=== PATIENT | male | born 2000 | race Caucasian/White ===

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

== ENCOUNTER 2023-12-22 21:22 | Emergency (ER) | payer MEDICAID, SELFPAY ==
[2023-12-22 21:28] VITALS: BP 138/78; PULSE 119; RESP 16; TEMP 37.3; O2SAT 100; BMI 22.4
[2023-12-22] MEDS: ondansetron 4 MG Tablet PO (22:21)
[2023-12-22] MEDS: methadone 10 mg Tablet 100 MG PO (22:22)
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
== END 2023-12-22 22:32 | disposition home or self-care (01) ==
PROVIDERS: Emergency Provider Emergency Medicine
DX: F11.23 Opioid dependence with withdrawal (principal)
CPT/HCPCS: 99283; Q0162

== ENCOUNTER 2025-02-13 17:18 | Emergency (ER) | payer MEDICAID, SELFPAY ==
[2025-02-13 17:25] VITALS: BP 121/71; PULSE 139; RESP 18; TEMP 37.1; O2SAT 96; BMI 23.0
--- OUTSIDE RECORDS SUMMARY | 2025-02-13 17:25 | XMS_ITS | Clinical Summary ---
Author Organization [facility] Address [address] Figueroa: Epic Prelude ADT [place] [address] Care Team Providers Care Director Of Software Engineering Name Role Phone Amor Valdez MD Primary Care Provider [phone] Allergies Active Allergy Reactions Criticality Noted Date Comments Penicillins Hives High 04/11/2016 Medications fluticasone propionate (FLONASE) 50 mcg/spray [place], Suspension nasal inhalerIndicati ons:Facial trauma, subsequent encounter,Heada ches due to old head trauma,Closed fracture of frontal sinus with routine healing, subsequent encounter Administer 2 Sprays in each nostril daily. 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, left frontal 0 07/17/2016 Facial trauma secondary to baseball injury 07/17 Closed fracture of frontal s inus, left due to trauma on 04/04/16 07/17/2016 Family History Medical History Relation Name Comments Healthy Father Healthy Mother Relation Name Status Comments Father Alive Mother Alive Social History Tobacco Use Types Packs/Day Years Used Date Smoking Tobacco: Never Smokeless Tobacco: Never Alcohol Use Standard Drinks/Week Comments No 0 (1 standard drink = 0.6 oz pur e alcohol) Sex and Gender Information Value Date Recorded Sex Assigned at Not on file Legal Sex Male 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 Gender Identity Not on file Sexual Orientation Not on file Last Filed Vital Signs Vital Sign Reading Time Taken Comments Blood Pressure 115/78 07/17/2016 11:48 AM MERCHANDISING 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 Pulse 64 07/17/2016 11:48 AM MERCHANDISING 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 Temperature - - Respiratory Rate - - Oxygen Saturation - - Inhaled Oxygen Concentration - - Weight 60.3 kg (133 lb) 07/17/2016 11:48 AM MERCHANDISING 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 Height 175.3 cm (5' 9 ) 07/17/2016 11:48 AM MERCHANDISING 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 Body Mass Index 19.64 07/17/2016 11:48 AM MERCHANDISING 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 Plan of Treatment Health Maintenance Due Date Last Done Comments HPV VACCINES (1 - Male 3-dose series) 2016 DTAP/TDAP/TD VACCINES (1 - Tdap) 2020 HEPATITIS B VACCINES (1 of 3 - 19+ 3-dose series) 05/08 INFLUENZA VACCINE (#1) 2025 Care Teams Director Of Software Engineering Relationship Specialty Start Date End Date Amor Valdez MD [address] [address] PCP - General Family Practice 04/12/16
--- OUTSIDE RECORDS SUMMARY | 2025-02-13 17:25 | XMS_ITS | Clinical Summary ---
Author Organization [facility] Address [address] [place] [address] Phone Care Team Providers Care Credit Risk Manager Name Role Phone Amor Valdez MD Primary Care Provider [phone] Allergies Active Allergy Reactions Criticality Noted Date Comments Penicillins Hives High 04/11/2016 Medications fluticasone (FLONASE) 50 mcg/spray [place], SuspensionIndic ations:Facial trauma, subsequent encounter,Heada ches due to old head trauma,Closed fracture of frontal sinus with routine healing, subsequent encounter Administer 2 Sprays in each nostril daily. 16 Gram 3 7 Active Active Problems Problem Noted Date Diagnosed Date Facial trauma secondary to baseball injury 07/17 Headaches due to old head trauma, left frontal 0 07/17/2016 Closed fracture of frontal s inus, left [...] at Not on file Legal Sex Male 3:04 PM CDT Gender Identity Not on file Sexual Orientation Not on file Last Filed Vital Signs Vital Sign Reading Time Taken Comments Blood Pressure 115/78 07/17/2016 11:48 AM EXERCISE INSTRUCTOR Pulse 64 07/17/2016 11:48 AM EXERCISE INSTRUCTOR Temperature - - Respiratory Rate - - Oxygen Saturation - - Inhaled Oxygen Concentration - - Weight 60.3 kg (133 lb) 07/17/2016 11:48 AM EXERCISE INSTRUCTOR Height 175.3 cm (5' 9 ) 07/17/2016 11:48 AM EXERCISE INSTRUCTOR Body Mass Index 19.64 07/17/2016 11:48 AM EXERCISE INSTRUCTOR Plan of Treatment Health Maintenance Due Date Last Done Comments HPV VACCINES (1 - Male 3-dose series) 2016 DTAP/TDAP/TD VACCINES (1 - Tdap) 2020 HEPATITIS B VACCINES (1 of 3 - 19+ 3-dose series) 05/08 INFLUENZA VACCINE (#1) 2025 [place] Care Teams Credit Risk Manager Relationship Specialty Start Date End Date Amor Valdez MD [address] [address] PCP - General Family Practice 04/12/16
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
[2025-02-13 18:38] VITALS: RESP 18
[2025-02-13 18:58] VITALS: BP 120/75; PULSE 108; RESP 15; O2SAT 98
--- NOTE | 2025-02-13 18:59 | PC.NURSE ---
Methadone 130mg verified with provider and pharmacy prior to admin. Pt placed on vitals/ alarm security or surveillance monitor in room.
[2025-02-13 19:00] VITALS: BP 121/92; PULSE 103; RESP 16; O2SAT 97
[2025-02-13 19:26] VITALS: BP 122/78; PULSE 124; O2SAT 97
== END 2025-02-13 19:28 | disposition home or self-care (01) ==
PROVIDERS: Emergency Provider Physician Assistant
DX: F11.93 Opioid use, unspecified with withdrawal (principal)
CPT/HCPCS: 99283; J9999

== ENCOUNTER 2025-04-17 13:57 | Emergency (ER) | payer MEDICAID, SELFPAY ==
[2025-04-17 13:59] VITALS: BP 149/100; PULSE 152; RESP 19; TEMP 36.9; O2SAT 100
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
--- NOTE | 2025-04-17 14:11 | ED_ITS ---
HPI - General Adult 2 General: Chief complaint: General Medical Stated complaint: Withdraw N Time Seen by Provider: 04/17/25 14:05 History of Present Illness: 24-year-old male presents to the emergen cy room reporting he missed a dose of his methadone and is having withdrawal he is tachycardic anxious and jittery. He states that his last dose was 3 days ago. He had 2 previous visits 1 in February of this year and 1 in December of last year with the same complaint. Patient states he ran out of methadone prior to the refill date. He gets a months worth at a time. He had contacted the clinic and they declined to refill his medicines until his next due date which is in 2 days on Saturday Associated symptoms: Reports nausea and vomiting; Deny chest pain, dyspnea or rash Related Data Previous Rx's ?Medication ?Instructions ?Recorded ondansetron 4 mg disintegrating 4 mg PO Q6H PRN nausea and 12/22/23 tablet vomiting #14 tabs clonidine HCl 0.1 mg tablet 0.1 mg PO BID #5 tabs 04/07 08/01 lorazepam 2 mg tablet (Ativan) 2 mg PO TID #7 tabs 06/01 ondansetron HCl 4 mg tablet 4 mg PO Q6H PRN nausea and 04/17/25 vomiting #15 tabs Allergies Allergy/AdvReac Type Severity Reaction Status Date / Time Penicillins Allergy ALGY-Rash Verified 12/22/23 21:31 Review of Systems 2 Const: Denies: fever(s) or chills Card: Denies: chest pain Resp: Denies: dyspnea GI: Reports: nausea and vomiting; Denies: abdominal pain : Denies: dysuria, urinary frequency or urinary urgency Musc: Denies: neck pain or back pain Skin/Breast: Denies: rash Physical Exam 2 Const: COMMON NORMALS: no acute distress GENERAL APPEARANCE: cooperative and comfortable ORIENTATION/CONSCIOUSNESS: Yes awake, Yes oriented to person, Yes oriented to place and Yes oriented to time HENMT: COMMON NORMALS: normocephalic, atraumatic and hearing grossly normal bilaterally HEAD & SCALP: normocephalic and atraumatic Resp: COMMON NORMALS: normal respiratory effort, No retractions, No use of accessory muscles and clear to auscultation bilaterally AUSCULTATION: clear to auscultation bilaterally Cardio: COMMON NORMALS: regular rate, regular rhythm and No murmurs present (Cardio) RATE: regular rate RHYTHM: regular rhythm GI: COMMON NORMALS: Soft to palpation and No hepatosplenomegaly present A USCULTATION: Yes normoactive bowel sounds PALPATION: Yes Soft to palpation, No Tenderness to palpation present (GI), No Guarding due to palpation present (GI) and Yes No hepatosplenomegaly present Extremity: COMMON NORMALS: normal to inspection, capillary refill normal, no clubbing, cyanosis or edema, no calf tenderness and no pedal edema Neuro: SENSORIUM/ORIENTATION: Yes oriented to person, Yes oriented to place and Yes oriented to time Skin: COMMON NORMALS: no rashes or lesions noted GENERAL SKIN EXAM: no rashes or lesions noted Course 2 Vital Signs: Vital signs: Vital Signs Temperature 98.4 F 04/17/25 13:59 Pulse Rate 130 H 04/17/25 14:46 Respiratory Rate 16 04/17/25 14:46 Blood Pressure 131/81 04/17/25 14:46 Pulse Oximetry 99 04/17/25 14:46 Oxygen Delivery Me thod Room Air 04/17/25 14:46 MDM - General Adult Medical Decision Making Patient gets a set prescription filled once a month from a local methadone clinic. They had already declined to give him extra due to his circumstances. Reviewed with Dr. De La Garza who is on-call for psychiatry he does manage methadone in some patients he recommends against giving any methadone at this time. Will discharge patient home did put him on clonidine scheduled and Ativan to use as needed follow-up methadone clinic on Saturday as scheduled. Medical Records I reviewed the patient's medical records. Lab Data I reviewed the patient's lab results. 04/17/25 14:36 04/17/25 14:36 Laboratory Results WBC 6.30 10^3/uL (3.29-11.43) 04/17/25 14:36 RBC 5.27 10^6/uL (3.85-5.65) 04/17/25 14:36 Hgb 15.40 g/dL (11.27-16.99) 04/17/25 14:36 Hct 45.9 % (37-53) 04/17/25 14:36 MCV 87.1 fl (82-101) 04/17/25 14:36 MCH 29.2 pg (27-33) 04/17/25 14:36 MCHC 33.6 g/dL (30-55) 04/17/25 14:36 RDW 11.8 % (12.1-15.1) L 04/17/25 14:36 Plt Count 206 10^3/cmm (157-399) 04/17/25 14:36 MPV 10.1 fL (7.4-10.4) 04/17/25 14:36 Neut % (Auto) 80.9 % 04/17/25 14:36 Lymph % (Auto) 15.7 % 04/17/25 14:36 [place] % (Auto) 3.0 % 04/17/25 14:36 Eos % (Auto) 0.0 % 04/17/25 14:36 Baso % (Auto) 0.2 % 04/17/25 14:36 Neut # (Auto) 5.10 10^3/uL (1.8-7.7) 04/17/25 14:36 Lymph # (Auto) 1.0 10^3/uL (0.8-4.8) 04/17/25 14:36 [place] # (Auto) 0.2 10^3/uL (0.2-0.9) 04/17/25 14:36 Eos # (Auto) 0.0 10^3/uL (0.0-0.8) 04/17/25 14:36 Baso # (Auto) 0.0 10^3/uL (0.0-0.1) 04/17/25 14:36 Nucleated RBC % (auto) 0 % 04/17/25 14:36 Nucleated RBCs # 0.0 /100WBC 04/17/25 14:36 Sodium 140 mmol/L (136-145) 04/17/25 14:36 Potassium 4.3 mmol/L (3.5-5.1) 04/17/25 14:36 Chloride 101 mmol/L (98-107) 04/17/25 14:36 Carbon Dioxide 24 mmol/L (22-29) 04/17/25 14:36 Anion Gap 19.3 (5-19) H 04/17/25 14:36 BUN 7 mg/dL (6-20) 04/17/25 14:36 Creatinine 0.8 mg/dL (0.7-1.2) 04/17/25 14:36 GFR Calculation 119.8 mL/min (90-130) 04/17/25 14:36 Glucose 111 mg/dL (65-115) 04/17/25 14:36 Calculated Osmolality 289 mOsm/kg (285-295) 04/17/25 14:36 Calcium 9.8 mg/dL (8.5-10.5) 04/17/25 14:36 Total Bilirubin 1.1 mg/dL (0.15-1.2) 04/17/25 14:36 AST 21 U/L (0-40) 04/17/25 14:36 ALT 24 U/L (0-41) 04/17/25 14:36 Alkaline Phosphatase 131 U/L (40-130) H 04/17/25 14:36 Total Protein 7.4 g/dL (6.6-8.7) 04/17/25 14:36 Albumin 5.0 g/dL (3.5-5.2) 04/17/25 14:36 Globulin 2.4 g/dL (1.3-4.6) 04/17/25 14:36 Urine Color Yellow (Yellow) 04/17/25 14:50 Urine Appearance Clear (CLEAR) 04/17/25 14:50 Urine pH 5 (5-7) 04/17/25 14:50 Ur Specific [place] 1.015 (1.005-1.030) 04/17/25 14:50 Urine Protein Neg (Negative) 04/17/25 14:50 Urine Glucose (UA) Norm (Normal) 04/17/25 14:50 Urine Ketones 1+ (Negative) H 04/17/25 14:50 Urine Blood Neg (Negative) 04/17/25 14:50 Urine Nitrate Negative (Negative) 04/17/25 14:50 Urine Bilirubin Neg (Negative) 04/17/25 14:50 Urine Urobilinogen 1 mg/dL (Negative) H 04/17/25 14:50 Ur Leukocyte Esterase Negative (Negative) 04/17/25 14:50 Amorphous Sediment Not Reportable 04/17/25 14:50 Urine Opiates Screen Negative ng/mL (Negative) 04/17/25 14:50 Ur Barbiturates Screen Negative ng/mL (Negative) 04/17/25 14:50 Ur Phencyclidine Scrn Negative ng/mL (Negative) 04/17/25 14:50 Ur Amphetamines Screen Negative ng/mL (Negative) 04/17/25 14:50 U Benzodiazepines Scrn Positive ng/mL (Negative) H 04/17/25 14:50 Urine Cocaine Screen Negative ng/mL (Negative) 04/17/25 14:50 U Marijuana (THC) Screen Negative ng/mL (Negative) 04/17/25 14:50 No radiology studies performed this visit Discharge Plan Discharge Patient Disposition: Home Clinical Impression: Methadone dependence Condition: Stable Prescriptions: New ondansetron HCl 4 mg tablet 4 mg PO Q6H PRN (Reason: nausea and vomiting) Qty: 15 0RF lorazepam [Ativan] 2 mg tablet 2 mg PO TID Qty: 7 0RF clonidine HCl 0.1 mg tablet 0.1 mg PO BID Qty: 5 0RF No Action ondansetron 4 mg tablet,disintegrating 4 mg PO Q6H PRN (Reason: nausea and vomiting) Qty: 14 0RF Discharge Orders: Discharge ED (Routine); Ordered 04/17/25 Ordered By: Johnny De Anda Discharge Diet: Clear Liquid Discharge Activity: Increase activity as tolerated Patient Instructions: Opioid Safety, Pain Management, Patient Portal & Tila Instructions Activity Restrictions/Additional Instructions: Thank you for choosing [facility] for your healthcare needs today. It is very important that you follow up as instructed or that you return to the Emergency Department should you have concerns or if your condition changes or worsens in any way. Emergency department visits are focused on emergent conditions, in some cases you may require further evaluation on an outpatient basis. You were seen in the emergency room with complaints of problems with your methadone reporting that you had run out of your prescription before your next refill was due. You reported to us that the clinic would not refill it until Saturday. Under the circumstances we cannot prescribe methadone to you. You will need to follow-up and work out a plan with the methadone clinic where this is prescribed for you. In the interim you were given scripts for Ativan clonidine and ondansetron to use as needed. (Please note that included in your discharge packet is information concerning opioid safety and pain management. This information is given to all patients were discharged from the ER regardless of their discharge diagnosis or the medicines they usually take or are prescribed.) Print Language: Setswana Coding Level of Care Code ED Labor Crew Supervisor for Chg Fwd
[2025-04-17] MEDS: LORazepam 1 MG/0.5 ML injection 2 MG IVP (14:31)
[2025-04-17 14:46] VITALS: BP 131/81; PULSE 130; RESP 16; O2SAT 99
[2025-04-17 14:56] LABS: Hematocrit 45.9 % (37-53); Hemoglobin 15.40 g/dL (11.27-16.99); Mean Corpuscular HGB Conc 33.6 g/dL (30-55); Mean Corpuscular Hemoglobin 29.2 pg (27-33); Mean Corpuscular Volume 87.1 fl (82-101); Nucleated Red Blood Cells % 0 %; Platelet Count 206 10^3/cmm (157-399); Red Blood Count 5.27 10^6/uL (3.85-5.65); White Blood Count 6.30 10^3/uL (3.29-11.43)
[2025-04-17 14:57] LABS: Add Urine Microscopic? NO
[2025-04-17 15:07] LABS: PCP Screen Urine Negative (Negative)
[2025-04-17 15:11] LABS: Glucose Urine UA Norm (Normal); Nitrate Urine Negative (Negative); Specific Gravity, Urine 1.015 (1.005-1.030)
[2025-04-17 15:12] LABS: Charge for UA Resulting for Rev
[2025-04-17 15:15] LABS: Alanine Aminotransferase 24 U/L (0-41); Albumin Level 5.0 g/dL (3.5-5.2); Alkaline Phosphatase 131 U/L (40-130); Anion Gap 19.3 (5-19); Aspartate Amino Transferase 21 U/L (0-40); Blood Urea Nitrogen 7 mg/dL (6-20); Calcium 9.8 mg/dL (8.5-10.5); Carbon Dioxide 24 mmol/L (22-29); Chloride 101 mmol/L (98-107); Creatinine Clr Calc Pharmacy 152.5818; Globulin 2.4 g/dL (1.3-4.6); Glucose 111 mg/dL (65-115); Osmolality Calculated 289 mOsm/kg (285-295); Potassium 4.3 mmol/L (3.5-5.1); Sodium 140 mmol/L (136-145); Total Protein 7.4 g/dL (6.6-8.7)
== END 2025-04-17 16:31 | disposition home or self-care (01) ==
PROVIDERS: Emergency Provider Family Medicine
DX: F11.20 Opioid dependence, uncomplicated (principal)
CPT/HCPCS: 36415; 80053; 80306; 81003; 85025; 96374; 99284; J2060; J7030; J9999